=== PATIENT | female | born 1990 | race Caucasian/White ===

== ENCOUNTER 2018-06-11 08:49 | Emergency (ER) | payer SELFPAY ==
[~2018-06-11] VITALS: Ht 160 cm; Wt 96.2 kg
--- NOTE | 2018-06-11 09:09 | NUR ---
For discharge-ACI given verbalized understanding. [employer] Officer Ayanna [id number] here for report. Discharged home ambulatory in stable condition
[2018-06-11 09:12] VITALS: BP 130/80
== END 2018-06-11 09:14 | disposition home or self-care (01) ==
LOC: ER 08:52
DX: Z04.1 Encounter for examination and observation following transport accident (principal); Z98.890 Other specified postprocedural states
CPT/HCPCS: 99283; A4606; Z7610